=== PATIENT | male | born 1995 | race Caucasian/White ===

== ENCOUNTER 2016-11-23 18:38 | Emergency (ER) | payer BC, OTHER ==
[~2016-11-23] VITALS: Ht 182.9 cm; Wt 70.3 kg
--- NOTE | 2016-11-23 20:10 | ED General ---
General Chief Complaint: Laceration Stated Complaint: R HAND THUMB LAC Nursing Triage Note: pt reports he has lac to right thumb by utility knife doing school project at approx 1600 today. Nursing Sepsis Screen: No Definite Risk Source of Information: Patient Exam Limitations: No Limitations History of Present Illness Time Seen by Provider: 20:10 Initial Comments 20-year-old male patient presents to the emergency department with complaints of a laceration to the right thumb while using a utility knife at school. Reports blade was clean. Occurred at approximately 1600 today. Denies numbness. Timing/Duration: Other (1600 today) Modifying Factors: worse with Other (worse with palpation) Constitutional: no symptoms reported Musculoskeletal: see HPI Skin: see HPI Psychiatric/Neurological: Denies Numbness, Denies Paresthesia, Denies Tingling , Denies Weakness All Other Systems Reviewed Negative Unless Noted: Yes (Negative excepted noted.) Past Fctonoy-Gehfhg-Bkihwe Hx Patient Social History Alcohol Use: Occasionally Uses Recreational Drug Use: No Smoking Status: Never a Smoker Recent Foreign Travel: No Contact w/Someone Who Travel: No Recent Infectious Disease Expo: No Recent Hopitalizations: No Immunizations Up To Date Tetanus Booster (TDap): Less than 5yrs (initially reported unknown last tetanus. now states <5yrs.) Seasonal Allergies Seasonal Allergies: No Surgeries HX Surgeries: No Respiratory Hx Respiratory Disorders: No Cardiovascular Hx Cardiac Disorders: No Neurological Hx Neurological Disorders: No Reproductive System Hx Reproductive Disorders: No Genitourinary Hx Genitourinary Disorders: No Gastrointestinal Hx Gastrointestinal Disorders: No Musculoskeletal Hx Musculoskeletal Disorders: No Endocrine Hx Endocrine Disorders: No HEENT HX ENT Disorders: No Cancer Hx Cancer: No Psychosocial Hx Psychiatric Problems: No Integumentary HX Skin/Integumentary Disorder: No Blood Transfusions Hx Blood Disorders: No Reviewed Nursing Assessment Reviewed/Agree w Nursing PMH: Yes Family Medical History Significant Family History: No Pertinent Family Hx Physical Exam Vital Signs Capillary Refill : Less Than 3 Seconds General Appearance: No Apparent Distress, WD/WN Cardiovascular: Normal Peripheral Pulses Extremity: Normal Capillary Refill, Normal Range of Motion, Other (1.5 cm superficial laceration of the distal right anterior thumb w/o active bleeding or cellulitis. mild soft tissue tenderness noted. ) Neurologic/Psychiatric: Alert, Oriented x3, No Motor/Sensory Deficits, Normal Mood/Affect Skin: Normal Color, Warm/Dry, Other (1.5 cm superficial laceration of the distal right anterior thumb w/o active bleeding or cellulitis. mild soft tissue tenderness noted. ) Progress/Results/Core Measures Results/Orders Vital Signs/I&O Blood Pressure Mean: 104 Departure Communication Progress Notes Patient seen and evaluated. Wound cleansed with chlorhexidine and sterile saline. Treatment options discussed with the patient including suture placement , Mastisol and Steri-Strips, and Dermabond. All questions answered. Patient refuses repair with sutures or Dermabond. States he would like to use the Mastisol and Steri-Strips. Mastisol and 1/4 inch Steri-Strips applied with finger splint. Discharge to home. Impression Impression: Primary Impression: Laceration of thumb Qualified Codes: S61.011A - Laceration without foreign body of right thumb without damage to nail, initial encounter Disposition: HOME, SELF-CARE Condition: Improved Departure-Patient Inst. Decision time for Depature: 20:26 Referrals: NO,LOCAL PHYSICIAN (PCP/Family) Primary Care Physician Patient Instructions: Wound Care (DC) Add. Discharge Instructions: All discharge instructions reviewed with patient and/or family. Voiced understanding. Tylenol extra strength [id number] as directed for pain. Ibuprofen 800 mg by mouth every 8 hours as needed for pain. Elevate the right hand on pillows. Ice pack for 20 minute intervals as needed for pain. Tomorrow morning begin showering with antibacterial soap and cover with a bandage. Finger splint as instructed. Return to the emergency department for worsened pain, redness, drainage, fever, or any other concerns. Follow up with a family practitioner if needed. WAQAS STANFORD Nov 23, 2016 20:10
[2016-11-23 20:35] VITALS: BP 148/82
== END 2016-11-23 20:35 | disposition home or self-care (01) ==
LOC: ER 18:42
DX: S61.011A Laceration without foreign body of right thumb without damage to nail, initial encounter (principal); W26.0XXA Contact with knife, initial encounter; Y99.8 Other external cause status